=== PATIENT | female | born 1935 | race Caucasian/White ===

== ENCOUNTER 2016-07-12 10:14 | Emergency (ER) | payer MEDICARE ==
[~2016-07-12] VITALS: Ht 160 cm; Wt 66.0 kg
[~2016-07-12 10:14] MED LIST: ALLO300 PO; ATAC32TA4 PO; ATOR20TA42 PO; CALTTAB2 PO; CLOP75 PO; GLIM1TAB PO; LACTCAP7 PO; MAGN400T PO; METO25CR PO; OMEP20CA5 PO; PRESCAP5 PO; REST0.05 EACH EYE; REST30CA PO; SPIR25 PO; VAGI25TA4 PV; VITATAB25 PO
[2016-07-12 10:18] VITALS: BP 196/72; PULSE 62; RESP 20; TEMP 97.5; O2SAT 98
[2016-07-12 10:23] VITALS: BP 155/65; PULSE 52; RESP 18; O2SAT 99
[2016-07-12 10:25] VITALS: RESP 17; O2SAT 100
[2016-07-12 10:48] VITALS: BP_SYST 133; BP_SYST 155; BP_DIAS 62; BP_DIAS 65; PULSE 52; RESP 17; O2SAT 100
[2016-07-12] MEDS ORDERED: SODIUM CHLORIDE 0.9% FLUSH 5 ML FLUSH IVF PRN (11:00)
[2016-07-12 11:13] LABS: AUTOMATED NEUTROPHIL # 3.4 TH/MM3 (1.8-7.7); BASOPHIL % 0.4 % (0.0-2.0); EOSINOPHIL % 0.5 % (0.0-4.0); HEMATOCRIT 33.5 % (35.0-46.0); HEMO FLAGS DIFF FINAL; LYMPH % 24.6 % (9.0-44.0); LYMPHOCYTE # 1.2 TH/MM3 (1.0-4.8); MEAN CELL VOLUME 93.6 FL (80.0-100.0); MEAN CORPUSCULAR HEMOGLOBIN 30.1 PG (27.0-34.0); MEAN CORPUSCULAR HGB CONC 32.2 % (32.0-36.0); MONO % 6.7 % (0.0-8.0); NEUT % 67.8 % (16.0-70.0); PLATELET COUNT 187 TH/MM3 (150-450); RED BLOOD COUNT 3.58 MIL/MM3 (4.00-5.30); RED CELL DISTRIBUTION WIDTH 14.8 % (11.6-17.2); WHITE BLOOD COUNT 4.9 TH/MM3 (4.0-11.0)
[2016-07-12 11:32] LABS: APTT (PATIENT) 25.4 SEC (24.3-30.1); PROTHROMBIN TIME - PATIENT 11.3 SEC (9.8-11.6)
--- NOTE | 2016-07-12 11:37 | PD ---
HPI . Chest pain Chief Complaint: Cardiac Complaint Time Seen by Provider: 10:39 Travel History International Travel<30 days: No Contact w/Intl Traveler<30days: No Traveled to known affect area: No History of Present Illness HPI Patient presents with chest pain that has been ongoing for 2-3 weeks. She states this been worse for the last couple days. She states that she has a history of both a previous [place] and a history of costochondritis. She states that she has not been short of breath nor has she been nauseous or dizzy. She reports mild cough but no fever or sputum production. Not exacerbated by respirations. PFSH Past Medical History Hx Anticoagulant Therapy: Yes Arthritis: Yes Asthma: No Autoimmune Disease: No Blood Disorders: No Anxiety: No Depression: No Heart Rhythm Problems: Yes (RAPID AT TIMES) Cancer: Yes (skin squamous) Cardiac Catheterization: Yes Cardiovascular Problems: Yes (TX ABOUT 10 YRS AGO) High Cholesterol: No Chemotherapy: No Chest Pain: Yes (STRESS TEST TODAY (12/30/2014)) Congestive Heart Failure: No COPD: No Cerebrovascular Accident: Yes (TIA 9 YRS AGO) Diabetes: Yes (TYPE 2) Patient Takes Glucophage: No Diminished Hearing: No Endocrine: Yes Gastrointestinal Disorders: Yes GERD: Yes Glaucoma: No Gout: Yes Genitourinary: No Hepatitis: Yes (WITH MONO) Hiatal Hernia: No Hypertension: Yes Immune Disorder: No Medical other: Yes (hx of stroke,mi,back and neck problems,reflux,stomach ulcers,arthritis) Musculoskeletal: Yes (GOUT) Neurologic: Yes Psychiatric: No Reproductive: No Respiratory: No Myocardial Infarction: Yes Radiation Therapy: No Sleep Apnea: No Thyroid Disease: No Ulcer: No Tetanus Vaccination: > 5 Years ?: Not Past Surgical History Abdominal Surgery: Yes (HYSTERECTOMY,TUBAL LIGATION) AICD: No Cardiac Surgery: Yes (angio plasty with 2 stents) Coronary Artery Bypass Graft: No Coronary Stent: Yes (x2) Ear Surgery: Yes (LASER SURGERY FOR GLAUCOMA) Endocrine Surgery: No Eye Surgery: Yes (CATARACT REMOVED (RT EYE)) Genitourinary Surgery: No Gynecologic Surgery: Yes (HYSTERECTOMY, TUBAL LIGATION) Hysterectomy: Yes Neurologic Surgery: No Pacemaker: No Thoracic Surgery: Yes (benign breast lump (X5)) Other Surgery: Yes (LYPOMA (LEFT ARMPIT)) Family History Family Myocardial Infarction: Yes (BROTHER) Social History Alcohol Use: No Tobacco Use: No Substance Use: No Allergies-Medications (Allergen,Severity, Reaction): Coded Allergies: Aleve (Verified Allergy, Severe, ulcers, 03/24/16) Amaryl (Verified Allergy, Severe, RASH, 07/12/16) Aspirin (Verified Allergy, Severe, can't take due hx of stomach ulcers, 07/12/16) Catapres (Verified Allergy, Severe, swelling, 07/12/16) Minipress (Verified Allergy, Severe, swelling, 07/12/16) Procardia (Verified Allergy, Severe, SWELLING, 07/12/16) Vioxx (Verified Allergy, Severe, SWELLING, 07/12/16) Xylocaine (Verified Allergy, Severe, heart fluttering, 07/12/16) Zetia (Verified Allergy, Severe, SWELLING, 07/12/16) Zocor (Verified Allergy, Severe, weakness and trouble swallowing, 07/12/16) Flagyl (Verified Allergy, Unknown, RASH, 07/12/16) Vancomycin (Verified Allergy, Unknown, RASH, 07/12/16) Codeine (Verified Adverse Reaction, Severe, PROFUSE VOMITTING, 07/12/16) Mevacor (Verified Adverse Reaction, Severe, liver enzymes abnormal, ) Morphine (Verified Adverse Reaction, Severe, PROFUSE VOMITTING, 07/12/16) Motrin (Verified Adverse Reaction, Severe, ulcers, 07/12/16) Ultram (Verified Adverse Reaction, Severe, NAUSEA, 07/12/16) Uncoded Allergies: CRESTOR (Allergy, Severe, MUSCLE ACHES, 12/06/09) Reported Meds & Prescriptions Reported Meds & Active Scripts Active Review of Systems Except as stated in HPI: all other systems reviewed are Neg General / Constitutional: No: Fever, Chills Cardiovascular: Positive: Chest Pain or Discomfort Respiratory: Positive: Cough, No: Shortness of Breath Gastrointestinal: No: Nausea, Vomiting Neurologic: No: Weakness, Dizziness Physical Exam Narrative GENERAL: This is a healthy, non-ill appearing woman distress. SKIN: Warm and dry. HEAD: Atraumatic. Normocephalic. EYES: Pupils equal and round. ENT: No nasal bleeding or discharge. Mucous membranes pink and moist. NECK: Trachea midline. Neck is supple. No cervical lymphadenopathy. CARDIOVASCULAR: Regular rate and rhythm. Heart sounds are normal. RESPIRATORY: No accessory muscle use. Lungs are clear. She does have some chest wall tenderness. GASTROINTESTINAL: Abdomen soft, non-tender, nondistended. MUSCULOSKELETAL: No obvious deformities. No edema. NEUROLOGICAL: Awake and alert. No obvious cranial nerve deficits. Motor grossly within normal limits. Normal speech. PSYCHIATRIC: Appropriate mood and affect; insight and judgment normal. Data Data Last Documented VS Vital Signs Date Time Temp Pulse Resp B/P Pulse Ox O2 Delivery O2 Flow Rate FiO2 07/12/16 12:30 50 16 133/62 100 Room Air 07/12/16 10:18 97.5 Orders Electrocardiogram (07/12/16 ) Ckmb (Isoenzyme) Profile (07/12/16 10:47) Complete Blood Count With Diff (07/12/16 10:47) Comprehensive Metabolic Panel (07/12/16 10:47) D-Dimer (07/12/16 10:47) Magnesium (Mg) (07/12/16 10:47) Prothrombin Time / Inr (Pt) (07/12/16 10:47) Act Partial Throm Time (Ptt) (07/12/16 10:47) Troponin I (07/12/16 10:47) Chest, Single Ap (07/12/16 10:47) Ecg Monitoring (07/12/16 10:47) Bilateral Bp Monitoring (07/12/16 10:47) Iv Access Insert/Monitor (07/12/16 10:47) Oximetry (07/12/16 10:47) Oxygen Administration (07/12/16 10:47) Sodium Chloride 0.9% Flush (Ns Flush) (07/12/16 11:00) Labs Laboratory Tests Test 07/12/16 10:40 White Blood Count 4.9 TH/MM3 Red Blood Count 3.58 MIL/MM3 Hemoglobin 10.8 GM/DL Hematocrit 33.5 % Mean Corpuscular Volume 93.6 FL Mean Corpuscular Hemoglobin 30.1 PG Mean Corpuscular Hemoglobin 32.2 % Concent Red Cell Distribution Width 14.8 % Platelet Count 187 TH/MM3 Mean Platelet Volume 8.6 FL Neutrophils (%) (Auto) 67.8 % Lymphocytes (%) (Auto) 24.6 % Monocytes (%) (Auto) 6.7 % Eosinophils (%) (Auto) 0.5 % Basophils (%) (Auto) 0.4 % Neutrophils # (Auto) 3.4 TH/MM3 Lymphocytes # (Auto) 1.2 TH/MM3 Monocytes # (Auto) 0.3 TH/MM3 Eosinophils # (Auto) 0.0 TH/MM3 Basophils # (Auto) 0.0 TH/MM3 CBC Comment DIFF FINAL Differential Comment Prothrombin Time 11.3 SEC Prothromb Time International 1.0 RATIO Ratio Activated Partial 25.4 SEC Thromboplast Time D-Dimer Quantitative (PE/DVT) 0.35 MG/L FEU Sodium Level 139 MEQ/L Potassium Level 4.6 MEQ/L Chloride Level 105 MEQ/L Carbon Dioxide Level 23.9 MEQ/L Anion Gap 10 MEQ/L Blood Urea Nitrogen 35 MG/DL Creatinine 1.35 MG/DL Estimat Glomerular Filtration 38 ML/MIN Rate Random Glucose 186 MG/DL Calcium Level 9.7 MG/DL Magnesium Level 1.7 MG/DL Total Bilirubin 0.4 MG/DL Aspartate Amino Transf 11 U/L (AST/SGOT) Alanine Aminotransferase 19 U/L (ALT/SGPT) Alkaline Phosphatase 91 U/L Total Creatine Kinase 82 U/L Troponin I LESS THAN 0.02 NG/ML Total Protein 6.8 GM/DL Albumin 3.7 GM/DL Exceptions Acute Myocardial Infarction ASA Not Given on Arrival: Hx. Allergy/Adv. Reaction (she reports that she cannot take aspirin because of previous bleeding ulcer.), Patient Refuses MDM Medical Decision Making Medical Screen Exam Complete: Yes Emergency Medical Condition: Yes Interpretation(s) EKG shows a sinus rhythm with no ST segment elevation or depression. Differential Diagnosis Differential diagnosis of chest pain includes but is not limited to musculoskeletal pain, pulmonary embolism, acute coronary syndrome, pneumonia, pleurisy Narrative Course Patient presents for evaluation of chest pain. I doubt serious etiology as she has had the pain for a couple of weeks. She does not appear ill. CBC has an H&H of 10.8 and 35.5. White count is normal at 4.9. D-dimer is normal. Cardiac enzymes are negative. Chest x-ray to my interpretation is negative. I have not discovered an acute etiology for this patient's chest pain. She is stable for discharge. Diagnosis Primary Impression: Chest pain Disposition: DISCHARGE HOME Condition: Stable Mariia Conte MD Jul 12, 2016 11:37
[2016-07-12 11:43] LABS: ALT (GPT) 19 U/L (10-53); ANION GAP 10 MEQ/L (5-15); AST (GOT) 11 U/L (15-37); BICARBONATE 23.9 MEQ/L (21.0-32.0); BLOOD UREA NITROGEN 35 MG/DL (7-18); CHLORIDE 105 MEQ/L (98-107); GLOMERULAR FILTRATION RATE 38 ML/MIN (>89); MAGNESIUM 1.7 MG/DL (1.5-2.5); POTASSIUM 4.6 MEQ/L (3.5-5.1); SODIUM (NA) 139 MEQ/L (136-145)
[2016-07-12 12:01] LABS: ALKALINE PHOSPHATASE 91 U/L (45-117); TOTAL BILIRUBIN ADULT 0.4 MG/DL (0.2-1.0)
[2016-07-12 12:02] LABS: CREATINE KINASE 82 U/L (26-192)
[2016-07-12 12:30] VITALS: BP 133/62; PULSE 50; RESP 16; O2SAT 100
--- NOTE | 2016-07-12 12:31 | RADRPT ---
EXAM DATE/TIME: 07/12/2016 11:49 [facility] COMPARISON: CHEST PA & LAT, December 30, 2014, 8:51. INDICATIONS : Chest Pain MEDICAL HISTORY : Hypertension. Diabetes mellitus type I. Gastroesophageal reflux disease. SURGICAL HISTORY : Hysterectomy. ENCOUNTER: Initial ACUITY: 1 day PAIN SCORE: 7/10 LOCATION: Bilateral chest FINDINGS: A single view of the chest demonstrates the lungs to be symmetrically aerated without evidence of mas s, infiltrate or effusion. The cardiomediastinal contours are unremarkable. Osseous structures are intact. CONCLUSION: No acute disease. Jp Isidro MD on July 12, 2016 at 12:30 Board Certified Radiologist. This report was verified electronically.
[2016-07-12] MEDS ORDERED: GLIM1 PO (12:41)
[2016-07-12] MEDS ORDERED: ATAC32TA PO (12:41)
[2016-07-12] MEDS ORDERED: PLAV75TA29 PO (12:41)
[2016-07-12] MEDS ORDERED: REST15CA PO (12:41)
[2016-07-12] MEDS ORDERED: ALDA50TA2 PO (12:41)
[2016-07-12] MEDS ORDERED: TOPR50TA PO (12:41)
[2016-07-12] MEDS ORDERED: LIPI20TA PO (12:41)
[2016-07-12] MEDS ORDERED: PRIL20CA9 PO (12:42)
[2016-07-12] MEDS ORDERED: ALLO300T2 PO (12:42)
[2016-07-12 12:55] VITALS: BP 130/77; TEMP 97.8
--- NOTE | 2016-07-12 13:27 | EKG ---
Date Performed: 07/12/2016 Time Performed: 10:35:32 PTAGE: 80 years EKG: SINUS BRADYCARDIA BORDERLINE LEFT AXIS DEVIATION Since previous tracing, no significant carlotta nge noted BORDERLINE ECG PREVIOUS TRACING : 12/30/2014 11.38 DOCTOR: Jennie Goncalves Interpretating Date/Time 07/12/2016 13:25:32
[2016-08-17] MEDS ORDERED: METO25TA6 PO (13:49)
[2016-08-17] MEDS ORDERED: REST0.05 EACH EYE (13:49)
[2016-08-17] MEDS ORDERED: ALLO300T2 PO (13:49)
[2016-08-17] MEDS ORDERED: SLOWTAB PO (13:49)
[2016-08-17] MEDS ORDERED: PRESCAP5 PO (14:25)
== END 2016-07-12 12:55 | disposition home or self-care (01) ==
LOC: NEPE 10:14
DX: R07.9 Chest pain, unspecified (principal)
CPT/HCPCS: 71010; 80053; 82550; 83735; 84484; 85025; 85379; 85610; 85730; 93005

== ENCOUNTER → 2016-08-17 | Outpatient (CLI) | payer MEDICARE ==
[~2016-08-17] MED LIST changes: +ALDA50TA2 PO; -ALLO300 PO; +ALLO300T2 PO; +ATAC32TA PO; -ATAC32TA4 PO; -ATOR20TA42 PO; -CALTTAB2 PO; -CLOP75 PO; +GLIM1 PO; -GLIM1TAB PO; -LACTCAP7 PO; +LIPI20TA PO; -MAGN400T PO; -METO25CR PO; +METO25TA6 PO; -OMEP20CA5 PO; +PLAV75TA29 PO; +PRIL20CA9 PO; +REST15CA PO; -REST30CA PO; +SLOWTAB PO; -SPIR25 PO; +TOPR50TA PO; -VAGI25TA4 PV; -VITATAB25 PO
[2016-08-17 13:08] LABS: AUTOMATED NEUTROPHIL # 2.7 TH/MM3 (1.8-7.7); BASOPHIL % 0.5 % (0.0-2.0); EOSINOPHIL # 0.1 TH/MM3 (0-0.4); EOSINOPHIL % 1.3 % (0.0-4.0); HEMATOCRIT 33.1 % (35.0-46.0); HEMO FLAGS DIFF FINAL; LYMPH % 33.1 % (9.0-44.0); LYMPHOCYTE # 1.5 TH/MM3 (1.0-4.8); MEAN CELL VOLUME 94.2 FL (80.0-100.0); MEAN CORPUSCULAR HEMOGLOBIN 30.9 PG (27.0-34.0); MEAN CORPUSCULAR HGB CONC 32.9 % (32.0-36.0); MONO % 6.7 % (0.0-8.0); NEUT % 58.4 % (16.0-70.0); PLATELET COUNT 178 TH/MM3 (150-450); RED BLOOD COUNT 3.51 MIL/MM3 (4.00-5.30); RED CELL DISTRIBUTION WIDTH 14.4 % (11.6-17.2); WHITE BLOOD COUNT 4.6 TH/MM3 (4.0-11.0)
[2016-08-17 13:31] LABS: ALKALINE PHOSPHATASE 95 U/L (45-117); ALT (GPT) 17 U/L (10-53); ANION GAP 8 MEQ/L (5-15); AST (GOT) 14 U/L (15-37); BICARBONATE 28.6 MEQ/L (21.0-32.0); BLOOD UREA NITROGEN 30 MG/DL (7-18); CHLORIDE 104 MEQ/L (98-107); GLOMERULAR FILTRATION RATE 39 ML/MIN (>89); GLUCOSE,FASTING 135 MG/DL (74-99); HDL CHOLESTEROL 44.2 MG/DL (40.0-60.0); LDL CHOLESTEROL 34 MG/DL (0-99); POTASSIUM 3.9 MEQ/L (3.5-5.1); SODIUM (NA) 141 MEQ/L (136-145); TOTAL BILIRUBIN ADULT 0.6 MG/DL (0.2-1.0); URIC ACID 3.8 MG/DL (2.6-6.0)
[2016-08-17 13:58] LABS: HEMOGLOBIN A1a 1.2 %; HEMOGLOBIN A1b 0.9 %; HEMOGLOBIN Ao 82.3 %; HEMOGLOBIN F 1.2 %; HEMOGLOBIN LA1C 2.5 %; HEMOGLOBIN P3 6.4 %
== END ==
LOC: PLAB 08:51
PROVIDERS: ATTEND Family Medicine
DX: I25.10 Atherosclerotic heart disease of native coronary artery without angina pectoris (principal); M10.9 Gout, unspecified; I11.9 Hypertensive heart disease without heart failure; R07.89 Other chest pain; I13.10 Hypertensive heart and chronic kidney disease without heart failure, with stage 1 through stage 4 chronic kidney disease, or unspecified chronic kidney disease; N18.3 Chronic kidney disease, stage 3 (moderate); E11.22 Type 2 diabetes mellitus with diabetic chronic kidney disease
CPT/HCPCS: 36415; 80053; 80061; 83036; 84550; 85025

== ENCOUNTER → 2016-10-08 | Outpatient (CLI) | payer MEDICARE ==
[~2016-10-08] MED LIST changes: -TOPR50TA PO
[2016-10-08 13:07] LABS: POTASSIUM 3.9 MEQ/L (3.5-5.1)
[2016-10-08 13:12] LABS: MICRO ALBUMIN RANDOM URINE RAW 21.3 MG/L (0.0-30.0)
== END ==
LOC: PLAB 10:16
PROVIDERS: ATTEND Internal Medicine Interventional Cardiology
DX: I25.10 Atherosclerotic heart disease of native coronary artery without angina pectoris (principal); R07.89 Other chest pain; I13.10 Hypertensive heart and chronic kidney disease without heart failure, with stage 1 through stage 4 chronic kidney disease, or unspecified chronic kidney disease; N18.3 Chronic kidney disease, stage 3 (moderate)
CPT/HCPCS: 36415; 80048; 80061; 82043; 82306; 83970; 84450; 84460

== ENCOUNTER → 2016-12-23 | Outpatient (CLI) | payer MEDICARE ==
[2016-12-23 13:14] LABS: BASOPHIL % 0.4 % (0.0-2.0); EOSINOPHIL # 0.1 TH/MM3 (0-0.4); HEMATOCRIT 33.5 % (35.0-46.0); HEMO FLAGS DIFF FINAL; LYMPH % 35.7 % (9.0-44.0); LYMPHOCYTE # 1.9 TH/MM3 (1.0-4.8); MEAN CELL VOLUME 93.7 FL (80.0-100.0); MEAN CORPUSCULAR HEMOGLOBIN 30.2 PG (27.0-34.0); MEAN CORPUSCULAR HGB CONC 32.2 % (32.0-36.0); NEUT % 55.9 % (16.0-70.0); PLATELET COUNT 171 TH/MM3 (150-450); RED BLOOD COUNT 3.57 MIL/MM3 (4.00-5.30); RED CELL DISTRIBUTION WIDTH 14.4 % (11.6-17.2); WHITE BLOOD COUNT 5.3 TH/MM3 (4.0-11.0)
[2016-12-23 13:57] LABS: ANION GAP 8 MEQ/L (5-15); AST (GOT) 19 U/L (15-37); BICARBONATE 22.6 MEQ/L (21.0-32.0); BLOOD UREA NITROGEN 48 MG/DL (7-18); CHLORIDE 110 MEQ/L (98-107); GLOMERULAR FILTRATION RATE 34 ML/MIN (>89); POTASSIUM 4.3 MEQ/L (3.5-5.1); SODIUM (NA) 141 MEQ/L (136-145)
[2016-12-23 14:29] LABS: ALKALINE PHOSPHATASE 96 U/L (45-117); ALT (GPT) 22 U/L (10-53); GLUCOSE,FASTING 109 MG/DL (74-99); LDL CHOLESTEROL 33 MG/DL (0-99); TOTAL BILIRUBIN ADULT 0.4 MG/DL (0.2-1.0); URIC ACID 4.5 MG/DL (2.6-6.0)
[2016-12-23 16:37] LABS: HEMOGLOBIN A1a 1.2 %; HEMOGLOBIN Ao 82.5 %; HEMOGLOBIN F 1.2 %; HEMOGLOBIN LA1C 2.2 %; HEMOGLOBIN P3 6.3 %
== END ==
LOC: PLAB 08:53
PROVIDERS: ATTEND Family Medicine
DX: M10.9 Gout, unspecified (principal); N18.3 Chronic kidney disease, stage 3 (moderate); E11.22 Type 2 diabetes mellitus with diabetic chronic kidney disease; I25.10 Atherosclerotic heart disease of native coronary artery without angina pectoris
CPT/HCPCS: 36415; 80053; 80061; 83036; 84550; 85025

== ENCOUNTER → 2017-03-19 | Outpatient (CLI) | payer MEDICARE ==
[2017-03-19 13:18] LABS: AUTOMATED NEUTROPHIL # 3.4 TH/MM3 (1.8-7.7); BASOPHIL % 0.4 % (0.0-2.0); EOSINOPHIL % 0.9 % (0.0-4.0); HEMATOCRIT 32.5 % (35.0-46.0); HEMO FLAGS DIFF FINAL; LYMPH % 32.9 % (9.0-44.0); LYMPHOCYTE # 1.9 TH/MM3 (1.0-4.8); MEAN CELL VOLUME 94.4 FL (80.0-100.0); MEAN CORPUSCULAR HEMOGLOBIN 31.2 PG (27.0-34.0); MONO % 6.8 % (0.0-8.0); PLATELET COUNT 199 TH/MM3 (150-450); RED BLOOD COUNT 3.44 MIL/MM3 (4.00-5.30); RED CELL DISTRIBUTION WIDTH 14.8 % (11.6-17.2); WHITE BLOOD COUNT 5.7 TH/MM3 (4.0-11.0)
[2017-03-19 13:19] LABS: TRANSFERRIN IRON PROFILE 266 MG/DL (200-360)
[2017-03-19 13:20] LABS: ALT (GPT) 24 U/L (10-53); ANION GAP 6 MEQ/L (5-15); AST (GOT) 17 U/L (15-37); BICARBONATE 27.4 MEQ/L (21.0-32.0); BLOOD UREA NITROGEN 35 MG/DL (7-18); CHLORIDE 105 MEQ/L (98-107); GLOMERULAR FILTRATION RATE 33 ML/MIN (>89); GLUCOSE,FASTING 110 MG/DL (74-99); POTASSIUM 4.2 MEQ/L (3.5-5.1); SODIUM (NA) 138 MEQ/L (136-145)
[2017-03-19 13:22] LABS: ALKALINE PHOSPHATASE 96 U/L (45-117); FERRITIN 36 NG/ML (8-252); TOTAL BILIRUBIN ADULT 0.4 MG/DL (0.2-1.0)
[2017-03-19 15:45] LABS: HEMOGLOBIN A1a 1.3 %; HEMOGLOBIN A1b 1.1 %; HEMOGLOBIN Ao 82.3 %; HEMOGLOBIN F 1.2 %; HEMOGLOBIN LA1C 2.3 %; HEMOGLOBIN P3 6.5 %
== END ==
LOC: PLAB 09:14
PROVIDERS: ATTEND Internal Medicine Nephrology
DX: N18.3 Chronic kidney disease, stage 3 (moderate) (principal); E11.22 Type 2 diabetes mellitus with diabetic chronic kidney disease; D63.1 Anemia in chronic kidney disease; D50.8 Other iron deficiency anemias
CPT/HCPCS: 36415; 80053; 82728; 83036; 83540; 83550; 85025

== ENCOUNTER → 2017-10-07 | Outpatient (CLI) | payer MEDICARE ==
[~2017-10-07] MED LIST changes: +METO1TAB42 PO; -METO25TA6 PO
[2017-10-07 10:43] LABS: AUTOMATED NEUTROPHIL # 2.6 TH/MM3 (1.8-7.7); BASOPHIL % 0.3 % (0.0-2.0); EOSINOPHIL % 0.9 % (0.0-4.0); HEMATOCRIT 32.4 % (35.0-46.0); HEMOGLOBIN 10.9 GM/DL (11.6-15.3); LYMPH % 35.3 % (9.0-44.0); LYMPHOCYTE # 1.6 TH/MM3 (1.0-4.8); MEAN CELL VOLUME 95.3 FL (80.0-100.0); MEAN CORPUSCULAR HEMOGLOBIN 32.1 PG (27.0-34.0); MEAN CORPUSCULAR HGB CONC 33.7 % (32.0-36.0); MEAN PLATELET VOLUME 8.5 FL (7.0-11.0); MONO % 6.9 % (0.0-8.0); MONOCYTE # 0.3 TH/MM3 (0-0.9); NEUT % 56.6 % (16.0-70.0); PLATELET COUNT 177 TH/MM3 (150-450); RED CELL DISTRIBUTION WIDTH 14.3 % (11.6-17.2); WHITE BLOOD COUNT 4.6 TH/MM3 (4.0-11.0)
[2017-10-07 11:12] LABS: ALBUMIN 3.7 GM/DL (3.4-5.0); AST (GOT) 19 U/L (15-37); BICARBONATE 23.7 MEQ/L (21.0-32.0); BLOOD UREA NITROGEN 40 MG/DL (7-18); CALCIUM 8.8 MG/DL (8.5-10.1); CHLORIDE 108 MEQ/L (98-107); CREATININE 1.36 MG/DL (0.50-1.00); GLOMERULAR FILTRATION RATE 37 ML/MIN (>89); GLUCOSE,FASTING 126 MG/DL (74-99); SODIUM (NA) 141 MEQ/L (136-145)
[2017-10-07 11:13] LABS: ALT (GPT) 21 U/L (10-53); CHOLESTEROL 90 MG/DL (120-200); TRIGLYCERIDES 103 MG/DL (42-150)
[2017-10-07 11:38] LABS: ALKALINE PHOSPHATASE 79 U/L (45-117); CHOLESTEROL/ HDL RATIO 2.37 RATIO; HDL CHOLESTEROL 37.9 MG/DL (40.0-60.0); LDL CHOLESTEROL 32 MG/DL (0-99); TOTAL BILIRUBIN ADULT 0.4 MG/DL (0.2-1.0); TOTAL PROTEIN 6.8 GM/DL (6.4-8.2)
== END ==
LOC: PLAB 09:12
PROVIDERS: ATTEND Family Medicine
DX: E78.5 Hyperlipidemia, unspecified (principal); E11.22 Type 2 diabetes mellitus with diabetic chronic kidney disease; D63.1 Anemia in chronic kidney disease; N18.3 Chronic kidney disease, stage 3 (moderate); R20.0 Anesthesia of skin; M10.9 Gout, unspecified; E53.8 Deficiency of other specified B group vitamins
CPT/HCPCS: 36415; 80053; 80061; 82607; 83970; 84550; 85025

== ENCOUNTER → 2017-11-09 | Outpatient (CLI) | payer MEDICARE ==
[2017-11-09 14:10] LABS: AUTOMATED NEUTROPHIL # 2.9 TH/MM3 (1.8-7.7); BASOPHIL % 0.5 % (0.0-2.0); EOSINOPHIL % 0.8 % (0.0-4.0); HEMATOCRIT 32.9 % (35.0-46.0); LYMPH % 38.9 % (9.0-44.0); LYMPHOCYTE # 2.1 TH/MM3 (1.0-4.8); MEAN CELL VOLUME 94.3 FL (80.0-100.0); MEAN CORPUSCULAR HEMOGLOBIN 31.6 PG (27.0-34.0); MEAN CORPUSCULAR HGB CONC 33.6 % (32.0-36.0); MEAN PLATELET VOLUME 8.7 FL (7.0-11.0); MONO % 6.5 % (0.0-8.0); MONOCYTE # 0.3 TH/MM3 (0-0.9); NEUT % 53.3 % (16.0-70.0); PLATELET COUNT 201 TH/MM3 (150-450); RED BLOOD COUNT 3.49 MIL/MM3 (4.00-5.30); WHITE BLOOD COUNT 5.4 TH/MM3 (4.0-11.0)
[2017-11-09 14:11] LABS: ALBUMIN 3.9 GM/DL (3.4-5.0); BICARBONATE 24.7 MEQ/L (21.0-32.0); CALCIUM 9.6 MG/DL (8.5-10.1); CREATININE 1.38 MG/DL (0.50-1.00); PHOSPHORUS 3.8 MG/DL (2.5-4.9)
== END ==
LOC: PLAB 09:05
PROVIDERS: ATTEND Internal Medicine Nephrology
DX: E11.22 Type 2 diabetes mellitus with diabetic chronic kidney disease (principal); N18.3 Chronic kidney disease, stage 3 (moderate)
CPT/HCPCS: 36415; 80069; 82043; 82306; 83970; 85025